=== PATIENT | female | born 1985 ===

== ENCOUNTER 2022-10-22 21:29 | Inpatient (IN) | payer OTHER ==
[~2022-10-22] VITALS: Ht 154.9 cm; Wt 58.2 kg
[2022-10-22] MEDS ORDERED: RT ADVAIR HFA 1112 G PO (22:40)
[2022-10-22] MEDS ORDERED: PREDNISONE20 MG PO (22:42)
[2022-10-22] MEDS ORDERED: FLONASE NASAL S16 GM NS (22:54)
[2022-10-22] MEDS ORDERED: ZYRTEC 10MG10 MG PO (22:54)
[2022-10-22] MEDS ORDERED: PRENATAL TABLET PO (22:56)
[2022-10-22 23:25] VITALS: BP 109/66; PULSE 84; TEMP 98.2
[2022-10-23] VITALS (10 sets, daily range): BP systolic 109–128; BP diastolic 74–92; PULSE 75–106; TEMP 97.8–98.6
[2022-10-23 06:41] LABS: BASO % 0.2 % (0.0-2.0); EOS # 0.1 K/mm3 (0.0-0.7); EOS % 0.9 % (0.0-4.0); GRAN % 89.9 % (42.2-75.2); HEMATOCRIT 37.2 % (37.0-47.0); HEMOGLOBIN 12.2 g/dl (12.5-16.0); LYMPH # 0.8 K/mm3 (1.2-3.4); LYMPH % 5.8 % (20.0-51.0); MEAN CELL VOLUME 85 fl (80.0-100.0); MEAN CORPUSCULAR HEMOGLOBIN 28 pg (27-31); MEAN CORPUSCULAR HGB CONC 33 g/dl (33.0-37.0); MEAN PLATELET VOLUME 9.7 fl (7.4-10.4); MONO # 0.4 K/mm3 (0.1-0.6); MONO % 2.8 % (1.7-9.3); PLATELET COUNT 263 K/mm3 (130-400); RED BLOOD COUNT 4.39 M/mm3 (4.10-5.30); REDCELL DISTRIBUTION WIDTH-CV 14.3 % (11.5-14.5)
[2022-10-23 06:56] LABS: CALCIUM 8.7 mg/dL (8.4-10.2); CREATININE, serum 0.64 mg/dL (0.57-1.11); POTASSIUM 3.2 mmol/L (3.5-4.5)
--- NOTE | 2022-10-23 09:15 | NUR ---
PT AWAKE RESTING IN BED THIS MORNING. PT DID STATE SHE DOES STILL FEEL SHORT OF BREATH AT TIMES AND COUGHING UP THICH YELLOW SPUTUM. PT REMAINS ON 2L O2, CAN TITRATE DOWN TOLERATED. PT REMAINS ON DROPLET PRECAUTIONS. PT UP EATING BREAKFAST, NO OTHER COMPLAINTS AT THIS TIME.
--- NOTE | 2022-10-23 11:20 | NUR ---
The patient is in droplet and contact isolation. SW contacted the patient to complete intake. The patient's , Roger (ph#[phone]), answered the phone. The patient lives on [address] with her and their four children. Roger reports that the patient is independent with ADLs and does not have any DME. The patient receives primary care and her medications at [facility]. Roger states she does not have a DPOA-HC. Roger states that the plan is for the patient to return back home upon discharge. The patient is currently requiring 1.5 liters of oxygen and the confirms that she does not have home oxygen. *Discharge plan: home with family. May need home oxygen set up*
--- NOTE | 2022-10-23 12:34 | NUR ---
THIS NURSE IN TO SEE PT. PT STATED SHE DID NOT FEEL SHORT OF BREATH AT THAT TIME. THIS NURSE TITRATED O2 DOWN TO 1L VIA NC. O2SAT AT THAT TIME WAS 93%. O2SAT RECHECKED BY DRAGLINE OPERATOR HELPER APPROX. 1230, O2SAT WAS 90% ON 1L NC AT THAT TIME. O2 TITRATED BACK UP TO 2L VIA NC BY THIS NURSE.
--- NOTE | 2022-10-23 15:02 | NUR ---
SOFTWARE DEVELOPMENT ENGINEER NOTIFIED NURSE OF PT HEART RATE IN THE 140'S. THIS NURSE NOTED THE PT TO BE UP IN THE BATHROOM AT THAT TIME. PT HEART RATE MAINTAINED IN THE 120'S FOR SEVERAL MINUTE. PT STATED SHE WAS NOT SYMPTOMATIC, NO CHEST PAIN OR PALPATATIONS. THIS NURSE UPDATED IRAM Cheung OF PT STATUS. EKG WAS ORDERED.
--- NOTE | 2022-10-23 22:05 | NUR ---
PT. STATES THAT SHE FEELS LIKE SHE IS A LITTLE WHEEZY AND ASKED IF THAT WAS BECAUSE SHE HAD BEEN COUGHING UP SOME SECRETIONS, I STATED THAT THAT WAS POSSIBLE, BUT THAT ANYTHING SHE IS ABLE TO COUGH UP IS BETTER FOR HER LUNGS, WHEN THOSE SECRETIONS DON'T COME OUT THAT IS WHEN IT CAN LEAD TO INFECTION, INFORMED PT. THAT THE RESULTS FOR A COUPLE OF HER LAB TESTS/ SAMPLES THAT WE SENT YESTERDAY HAVE COME BACK, AND THAT WE ARE JUST WAITING ON HER RESPIRATORY PANEL, AND SPUTUM CULTURE RESULTS BEFORE WE WILL BE ABLE TO CLEAR HER OUT OF ISOLATION, PT. DENIES ANY FURTHER NEEDS AT THIS TIME, WILL CONTINUE TO MONITOR.
[2022-10-24] VITALS (8 sets, daily range): BP systolic 117–126; BP diastolic 71–82; PULSE 64–92; TEMP 97.7–98.4
[2022-10-24 06:49] LABS: CALCIUM 9.5 mg/dL (8.4-10.2); CREATININE, serum 0.71 mg/dL (0.57-1.11); POTASSIUM 3.9 mmol/L (3.5-4.5)
[2022-10-24 06:55] LABS: BASO % 0.1 % (0.0-2.0); GRAN # 7.2 K/mm3 (1.4-6.5); GRAN % 85.7 % (42.2-75.2); HEMATOCRIT 39.1 % (37.0-47.0); HEMOGLOBIN 12.5 g/dl (12.5-16.0); LYMPH # 0.9 K/mm3 (1.2-3.4); MEAN CELL VOLUME 86 fl (80.0-100.0); MEAN CORPUSCULAR HEMOGLOBIN 28 pg (27-31); MEAN CORPUSCULAR HGB CONC 32 g/dl (33.0-37.0); MEAN PLATELET VOLUME 9.8 fl (7.4-10.4); MONO # 0.2 K/mm3 (0.1-0.6); MONO % 2.7 % (1.7-9.3); PLATELET COUNT 291 K/mm3 (130-400); RED BLOOD COUNT 4.54 M/mm3 (4.10-5.30); REDCELL DISTRIBUTION WIDTH-CV 14.4 % (11.5-14.5)
[2022-10-24] MEDS ORDERED: CEFTIN500 MG PO (11:14)
[2022-10-24] MEDS ORDERED: DOXYCYCLINE HY100 MG PO (11:15)
[2022-10-24] MEDS ORDERED: PREDNISONE20 MG PO (11:17)
--- NOTE | 2022-10-24 11:41 | NUR ---
SHIFT ASSESSMENT COMPLETED AND MORNING MEDICATIONS ADMINISTERED PER ORDER. PATIENT IS ALERT AND ORIENTED X4. DENIES PAIN. LUNGS CTA. AMBULATES INDEPENDENTLY. DISCHARGING TODAY. DENIES NEEDS. CALL LIGHT WITHIN REACH.
--- NOTE | 2022-10-24 14:33 | NUR ---
PATIENT DISCHARGED PER ORDER. IV TO LEFT FOREARM REMOVED WITH CATHETER INTACT, GAUZE DRESSING APPLIED. TELEMETRY REMOVED. DISCHARGE EDUCATION PROVIDED ON MEDICATIONS, FOLLOW UPS, AND DIAGNOSIS. PATIENT DENIES FURTHER QUESTIONS. ESCORTED OUT BY VIA [facility].
== END 2022-10-24 14:34 | disposition home or self-care (01) | DRG 193 ==
LOC: MEDICAL 21:29 → SURG 21:55
PROVIDERS: Nurse Practitioner Family; Physician Assistant; ADMIT Internal Medicine
DX: J18.9 Pneumonia, unspecified organism (principal); J96.01 Acute respiratory failure with hypoxia; E87.6 Hypokalemia; J45.909 Unspecified asthma, uncomplicated; K44.9 Diaphragmatic hernia without obstruction or gangrene; N63.0 Unspecified lump in unspecified breast; Z87.891 Personal history of nicotine dependence; Z23 Encounter for immunization; Z88.0 Allergy status to penicillin; Z91.048 Other nonmedicinal substance allergy status
CPT/HCPCS: A9284; J0696; J1650; J7030; J7512